=== PATIENT | male | born 1945 | race Caucasian/White ===

== ENCOUNTER 2022-07-22 07:39 | Day surgery (SDC) | payer MEDICARE, OTHER ==
[~2022-07-22] VITALS: Ht 190.5 cm; Wt 100.0 kg
[2022-07-22] VITALS (9 sets, daily range): BP systolic 98–131; BP diastolic 60–77
[2022-07-22] MEDS ORDERED: LIDOcaine 1%/PF 5ML 10 MG/ML VIAL SQ ONE (07:45)
[2022-07-22] MEDS ORDERED: albumin 25% 100mL bottle x 1 IV PRN (08:10)
[2022-07-22] MEDS ORDERED: ASPI-1264 PO (08:11)
[2022-07-22] MEDS ORDERED: MAGN500C4 PO (08:12)
[2022-07-22] MEDS ORDERED: Iron PO (08:13)
[2022-07-22] MEDS ORDERED: VITE1000C PO (08:13)
[2022-07-22] MEDS ORDERED: Metoprolol (08:14)
[2022-07-22] MEDS ORDERED: LOP12.5T PO (08:34)
[2022-07-22] MEDS ORDERED: HYDROcodone/acetaminophen 5mg/325mg tablet PO ONE (09:45)
[2022-07-22] MEDS: ondansetron 4mg rapidly disintigrating tab PO ONE ×2 (10:11→10:29)
== END 2022-07-22 11:00 | disposition home or self-care (01) ==
LOC: SSTAY O 07:39
PROVIDERS: ATTEND Radiology Vascular & Interventional Radiology
DX: C18.9 Malignant neoplasm of colon, unspecified (principal); R18.0 Malignant ascites; C78.7 Secondary malignant neoplasm of liver and intrahepatic bile duct; C78.00 Secondary malignant neoplasm of unspecified lung; C79.51 Secondary malignant neoplasm of bone; I10 Essential (primary) hypertension; Z88.1 Allergy status to other antibiotic agents; Z79.899 Other long term (current) drug therapy; Z79.82 Long term (current) use of aspirin
CPT/HCPCS: 49083; J3490; P9047; A6258; A6449

== ENCOUNTER 2022-08-02 07:15 | Day surgery (SDC) | payer MEDICARE, OTHER ==
[~2022-08-02] VITALS: Ht 190.5 cm; Wt 104.5 kg
[~2022-08-02 07:15] MED LIST: ASPI-1264 PO; Iron PO; LOP12.5T PO; MAGN500C4 PO; VITE1000C PO
[2022-08-02 07:58] VITALS: BP 95/48
[2022-08-02] MEDS ORDERED: albumin 25% 100mL bottle x 1 IV PRN (08:00)
[2022-08-02 08:30] LABS: MEAN CORPUSCULAR HGB CONC 30.3 g/dL (33.0-36.5); MEAN PLATELET VOLUME 8.3 FL (7.4-10.4); WHITE BLOOD COUNT 8.7 X10'3 (4.5-11.0)
[2022-08-02 08:32] LABS: MEAN CORPUSCULAR VOLUME 69.2 FL (78-98); PLATELET COUNT 350 X10'3 (140-440); RED CELL DISTRIBUTION WIDTH 26.4 % (11.5-14.5)
[2022-08-02 08:54] LABS: HEMATOCRIT 31.5 % (42.0-52.0); HEMOGLOBIN 9.6 g/dl (14.0-17.9); RED BLOOD COUNT 4.53 X10'6 (4.70-6.10)
[2022-08-02 09:00] LABS: TOTAL CELLS COUNTED 100
--- NOTE | 2022-08-02 09:00 | NUR ---
Spiriva catheter cancelled due to not having item in stock , will continue with Paracentesis.
[2022-08-02 09:01] LABS: ANISOCYTOSIS 3+; HYPOCHROMASIA 2+; MICROCYTOSIS 2+; PLATELET ESTIMATE NORMAL; TARGET CELLS 2+
[2022-08-02 09:02] LABS: ELLIPTOCYTES 1+; POLYCHROMASIA 1+
[2022-08-02] MEDS ORDERED: LIDOcaine 1% 30ml preserv. free vial SQ STA (09:15)
[2022-08-02] MEDS ORDERED: ondansetron/PF 4mg/2ml inj ONE (09:44)
[2022-08-02] MEDS ORDERED: HYDROcodone/acetaminophen 10/325mg tab PO ONE (09:55)
[2022-08-02 10:02] VITALS: BP 106/53
[2022-08-02 10:15] VITALS: BP 100/46
[2022-08-02 10:30] VITALS: BP 97/43
[2022-08-02 10:45] VITALS: BP 99/48
== END 2022-08-02 11:00 | disposition home or self-care (01) ==
LOC: SSTAY O 07:15
PROVIDERS: ATTEND Radiology Vascular & Interventional Radiology
DX: C18.0 Malignant neoplasm of cecum (principal); R18.0 Malignant ascites; C78.00 Secondary malignant neoplasm of unspecified lung; C78.7 Secondary malignant neoplasm of liver and intrahepatic bile duct; C79.51 Secondary malignant neoplasm of bone; I10 Essential (primary) hypertension; Z79.899 Other long term (current) drug therapy; Z98.890 Other specified postprocedural states; Z88.1 Allergy status to other antibiotic agents
CPT/HCPCS: 49083; 85007; 85025; A6258; J2405; J7030